=== PATIENT | male | born 2000 | race Caucasian/White ===

== ENCOUNTER 2021-04-06 17:01 | Emergency (ER) | payer OTHER ==
[~2021-04-06 17:01] MED LIST: ZOFRAN8 MG PO
[2021-04-06 21:14] LABS: BASOPHIL 0.2 % (0-2); EOSINOPHIL 0.1 % (0-5); HCT 47.7 % (42.0-52.0); HGB 16.4 g/dl (13.2-18.0); LYMPHOCYTE 8.2 % (15-48); MCH 29.1 pg (25.0-31.0); MCHC 34.4 g/dL (32.0-36.0); MCV 84.7 fL (78.0-100.0); MONOCYTE 5.6 % (0-12); MPV 10.8 fL (6.0-9.5); NEUTROPHIL 85.5 % (41-80); NRBC 0; PLT 385 K/uL (150-400); RBC 5.63 M/uL (4.70-6.00); RDW 12.9 % (11.5-14.0); WBC 14.2 K/uL (4.0-10.5)
[2021-04-06 21:15] LABS: BILIRUBIN 2+ mg/dL (NEGATIVE); BLOOD NEGATIVE Ery/uL (NEGATIVE); CLARITY HAZY (CLEAR); COLOR BROWN (YELLOW); GLUCOSE (U) NORMAL (NORMAL); LEUKOCYTES NEGATIVE Leu/uL (NEGATIVE); NITRITE POSITIVE (NEGATIVE); PROTEIN 2+ mg/dL (NEGATIVE); SPECIFIC GRAVITY 1.025 (1.001-1.030); pH 6.5 (5.0-9.0)
[2021-04-06 21:23] LABS: URINARY WBC 20-50
[2021-04-06 21:24] LABS: BACTERIA 2+; MUCOUS LARGE; URINARY RBC RARE
[2021-04-06 22:02] LABS: ALBUMIN 4.7 g/dL (3.4-5.0); ALKALINE PHOSHATASE 104 U/L (46-116); ALT <6 U/L (16-63); AST 28 U/L (15-37); BILIRUBIN - TOTAL 1.1 mg/dL (0.2-1.0); BUN 18 mg/dL (7-18); BUN/CREAT RATIO (CALC) 18.6 RATIO; CHLORIDE 92 mmol/L (98-107); CO2 (BICARBONATE) 25 mmol/L (21-32); CREATININE 0.97 mg/dL (0.67-1.17); GLOBULIN (CALCULATION) 4.3 g/dL; GLUCOSE 113 mg/dL (74-106); LIPASE <10 U/L (73-393); POTASSIUM 2.7 mmol/L (3.5-5.1)
[2021-04-07] MEDS ORDERED: MACROBID100 MG PO (01:43)
[2021-04-07] MEDS ORDERED: PROMETHEGA12.5 MG/SU PR (01:43)
[2021-04-07] MEDS ORDERED: ONDANSETRON ODT4 MG PO (01:43)
[2021-04-08 22:06] LABS: CHLAMYDIA TRACHOMATIS, NAA Negative (Negative); NEISSERIA GONORRHOEAE, NAA Negative (Negative)
== END 2021-04-07 04:38 | disposition home or self-care (01) ==
LOC: FER 17:01
PROVIDERS: Emergency Medicine
DX: U07.1 COVID-19 (principal); N39.0 Urinary tract infection, site not specified
CPT/HCPCS: 36415; 80053; 81001; 83690; 85025; 87088; 87491; 87591; J0696; J3475; J3480; J7120; Q0169; U0002